=== PATIENT | male | born 1950 | race Caucasian/White ===

== ENCOUNTER 2017-04-06 16:05 | Emergency (ER) | payer MEDICARE, OTHER ==
[~2017-04-06] VITALS: Ht 175.3 cm; Wt 126.3 kg
[2017-04-06 16:10] VITALS: BP 153/69; PULSE 100; RESP 16; TEMP 97.5; O2SAT 96
[2017-04-06] MEDS ORDERED: TRAZ100T10 PO (17:32)
[2017-04-06] MEDS ORDERED: TRIA37.5 PO (17:32)
[2017-04-06] MEDS ORDERED: IBUP1TAB7 PO (17:32)
[2017-04-06] MEDS ORDERED: TAMS0.4C4 PO (17:32)
[2017-04-06] MEDS ORDERED: FLUT50SP EACH NARE (17:32)
[2017-04-06] MEDS ORDERED: XARE20TA PO (17:32)
[2017-04-06] MEDS ORDERED: ATOR40TA16 PO (17:32)
[2017-04-06] MEDS ORDERED: SODIUM CHLOR 0.9% 1000 ML INJ 1,000 ML IV ONE (17:45)
[2017-04-06 18:01] VITALS: BP 132/70; PULSE 94; RESP 20; O2SAT 96
[2017-04-06 18:11] LABS: BILIRUBIN, URINE NEG (NEG); BLOOD, URINE TRACE (NEG); GLUCOSE,URINE NEG (NEG); KETONE, URINE NEG (NEG); NITRITE,URINE POS (NEG); URINE LEUKOCYTE ESTERASE SMALL (NEG)
--- NOTE | 2017-04-06 18:19 | PD ---
HPI . Urinary incontinence Chief Complaint: Dizziness Time Seen by Provider: 17:37 Travel History International Travel<30 days: No Contact w/Intl Traveler<30days: No Traveled to known affect area: No History of Present Illness HPI Patient presents with chief complaint of urinary incontinence. Onset was a week ago. He also has some occasional dysuria. He reports a history of BPH but states that his symptoms are usually well-controlled with Flomax. He states that he has never been incontinent of urine until this past week. In addition, he complains of his torso symptoms started about a week ago. He has had watery eyes, rhinorrhea, nasal congestion, cough and fever. All of these symptoms are improving. PFSH Past Medical History Deep Vein Thrombosis: Yes Hypertension: Yes Past Surgical History Tonsillectomy: Yes Other Surgery: Yes (VERTIBRAE REPLACED, MENISCUS SURG) Social History Alcohol Use: No Tobacco Use: No Substance Use: No Allergies-Medications (Allergen,Severity, Reaction): Coded Allergies: Penicillins (Verified Allergy, Unknown, 04/06/17) Tetanus Vaccines and Toxoid (Verified Allergy, Unknown, 04/06/17) Reported Meds & Prescriptions Reported Meds & Active Scripts Active Reported Atorvastatin (Atorvastatin Calcium) 40 Mg Tab 40 Mg PO HS Tamsulosin (Tamsulosin HCl) 0.4 Mg Cap 0.8 Mg PO DAILY Triamterene-Hydrochlorothiazide 37.5-25 Mg Tab 1 Tab PO DAILY Trazodone (Trazodone HCl) 100 Mg Tablet 100 Mg PO HS Fluticasone Nasal [place] 50 Mcg/Act Naspr 50 Mcg EACH NARE BID 50 mcg/spray Ibuprofen 800 Mg Tab 800 Mg PO BID Xarelto (Rivaroxaban) 20 Mg Tab 20 Mg PO DAILY Review of Systems Except as stated in HPI: all other systems reviewed are Neg General / Constitutional: Positive: Fever Eyes: Positive: Tearing HENT: Positive: Lightheadedness, Rhinorrhea, Congestion Respiratory: Positive: Cough Genitourinary: Positive: Dysuria, Incontinence Physical Exam Narrative GENERAL: Patient is awake and alert and in no acute distress. SKIN: warm/dry. Normal color and turgor. HEAD: Normocephalic. Atraumatic. EYES: Pupils equal and round. No scleral icterus. No injection or drainage. ENT: No nasal bleeding or discharge. Mucous membranes pink and moist. NECK: Trachea midline. Full range of motion without pain.. CARDIOVASCULAR: Regular rate and rhythm. Heart sounds normal. RESPIRATORY: No accessory muscle use. Clear to auscultation. Breath sounds equal bilaterally. GASTROINTESTINAL: Abdomen soft. Nontender. Bowel sounds present. Nondistended. MUSCULOSKELETAL: No obvious deformities. NEUROLOGICAL: Awake and alert. No obvious cranial nerve deficits. Motor grossly within normal limits. Normal speech. PSYCHIATRIC: Appropriate mood and affect; insight and judgment normal. Data Data Last Documented VS Vital Signs Date Time Temp Pulse Resp B/P (MAP) Pulse Ox O2 Delivery O2 Flow Rate FiO2 04/06/17 18:01 94 20 132/70 (90) 96 04/06/17 16:10 97.5 Orders Orders Urinalysis - C+S If Indicated (04/06/17 17:44) Sodium Chlor 0.9% 1000 Ml Inj (Ns 1000 M (04/06/17 17:45) Influenzae A/B Antigen (04/06/17 18:22) Urine Culture (04/06/17 17:50) Ceftriaxone Inj (Rocephin Inj) (04/06/17 18:45) Labs Laboratory Tests Test 04/06/17 17:50 Urine Color YELLOW Urine Turbidity CLOUDY Urine pH 6.0 Urine Specific [place] 1.023 Urine Protein TRACE mg/dL Urine Glucose (UA) NEG mg/dL Urine Ketones NEG mg/dL Urine Occult Blood TRACE Urine Nitrite POS Urine Bilirubin NEG Urine Leukocyte Esterase SMALL Urine RBC 4-9 /hpf Urine WBC 9-14 /hpf Urine Squamous Epithelial Cells 0-5 /hpf Urine Bacteria MANY /hpf Microscopic Urinalysis Comment CULTURE INDICATED MDM Medical Decision Making Medical Screen Exam Complete: Yes Emergency Medical Condition: Yes Differential Diagnosis Final differential diagnosis of urinary symptoms includes but is not limited to UTI, kidney stone, pyelonephritis, bacterial vaginosis, yeast infection, urinary retention Narrative Course This patient presents complaining with urinary incontinence and dysuria for the last week. He most likely has urinary tract infection. UA is pending. His urine looks very concentrated. He'll be given a liter of fluid pending his urinalysis. UA>>small LE, 4-9 RBCs, 9-14 WBCs, many bact I'll give him a dose of Rocephin here and discharge him home with a prescription for Keflex. Diagnosis Primary Impression: Urinary tract infection Qualified Codes: N30.00 - Acute cystitis without hematuria Patient Instructions: General Instructions, Urinary Tract Infection in Men (DC) Med/Other Pt SpecificInfo: Prescription(s) given Scripts Phenazopyridine (Pyridium) 100 Mg Tab 200 MG PO Q8H Y for DYSURIA, #10 TAB 0 Refills Prov: Zenobia Cruz MD 04/06/17 Cephalexin (Keflex) 500 Mg Cap 500 MG PO Q8H for Infection for 7 Days, #21 CAP 0 Refills Prov: Zenobia Cruz MD 04/06/17 Disposition: 01 DISCHARGE HOME Condition: Stable Zenobia Cruz MD Apr 06, 2017 18:19
[2017-04-06 18:25] LABS: URINE COLOR YELLOW (YELLW/STRAW)
[2017-04-06 18:26] LABS: BACTERIA, URINE MANY /hpf; SQUAMOUS EPITHELIAL CELL URINE 0-5 /hpf (0-5)
[2017-04-06] MEDS ORDERED: CEPH-460 PO (18:40)
[2017-04-06] MEDS ORDERED: PHEN0.4T PO (18:40)
[2017-04-06] MEDS ORDERED: cefTRIAXone INJ 1,000 MG in SODIUM CHLORIDE 0.9% INJ 100 ML IV ONE (18:45)
[2017-04-06 19:22] VITALS: BP 138/67; PULSE 85; RESP 16; O2SAT 99
== END 2017-04-06 20:05 | disposition home or self-care (01) ==
LOC: PHED 16:05
DX: N30.00 Acute cystitis without hematuria (principal); B96.1 Klebsiella pneumoniae [K. pneumoniae] as the cause of diseases classified elsewhere; N40.0 Benign prostatic hyperplasia without lower urinary tract symptoms; I10 Essential (primary) hypertension; Z86.718 Personal history of other venous thrombosis and embolism
CPT/HCPCS: 81001; 87077; 87086; 87186; 87804; 96361; 96365; 99284; J0696; J7030

== ENCOUNTER 2017-05-17 11:12 | Emergency (ER) | payer MEDICARE, OTHER ==
[~2017-05-17] VITALS: Ht 170.2 cm; Wt 128.0 kg
[~2017-05-17 11:12] MED LIST: ATOR40TA16 PO; CEPH-460 PO; FLUT50SP EACH NARE; IBUP1TAB7 PO; PHEN0.4T PO; TAMS0.4C4 PO; TRAZ100T10 PO; TRIA37.5 PO; XARE20TA PO
[2017-05-17 11:20] VITALS: BP 132/65; PULSE 93; RESP 18; TEMP 98.4; O2SAT 96
[2017-05-17] MEDS ORDERED: TAMS0.4C4 PO (11:53)
[2017-05-17] MEDS ORDERED: RANI150C PO (11:53)
[2017-05-17] MEDS ORDERED: FORT10GE TOPICAL (11:53)
[2017-05-17 12:08] LABS: BILIRUBIN, URINE NEG (NEG); BLOOD, URINE NEG (NEG); GLUCOSE,URINE NEG (NEG); KETONE, URINE NEG (NEG); NITRITE,URINE NEG (NEG); PH, URINE 5.5 (5.0-8.5); URINE COLOR YELLOW (YELLW/STRAW); URINE LEUKOCYTE ESTERASE MOD (NEG)
[2017-05-17 12:14] LABS: BACTERIA, URINE MOD /hpf; RBC, URINE 0-3 /hpf (0-3)
[2017-05-17] MEDS ORDERED: CEFD300C PO (12:24)
--- NOTE | 2017-05-17 12:24 | PD ---
HPI Chief Complaint: Complaint Time Seen by Provider: 11:31 Travel History International Travel<30 days: No Contact w/Intl Traveler<30days: No Traveled to known affect area: No History of Present Illness HPI 66-year-old male complains of dysuria and frequency. Duration has been approximately 3 or 4 days. No fever. Onset gradual. Modifying factor. Patient was seen here about 2 weeks prior and diagnosed with a UTI. He reports compliance with Keflex following the resolution of symptoms. PFSH Past Medical History Hx Anticoagulant Therapy: Yes Arthritis: Yes Atrial Fibrillation: Yes Heart Rhythm Problems: Yes High Cholesterol: Yes Deep Vein Thrombosis: Yes (left leg x 2) GERD: Yes Hypertension: Yes Medical other: Yes (hx of edema in legs, restless leg symdrome) Musculoskeletal: Yes (bilat knee) Respiratory: Yes (Asthma) Tetanus Vaccination: > 5 Years Influenza Vaccination: Yes ?: Not Past Surgical History Joint Replacement: Yes (left knee) Tonsillectomy: Yes Other Surgery: Yes (VERTIBRAE REPLACED, MENISCUS SURG) Social History Alcohol Use: No Tobacco Use: No Substance Use: No Allergies-Medications (Allergen,Severity, Reaction): Coded Allergies: Penicillins (Verified Allergy, Unknown, 05/17/17) Tetanus Vaccines and Toxoid (Verified Allergy, Unknown, 05/17/17) Reported Meds & Prescriptions Reported Meds & Active Scripts Active Reported Ranitidine (Ranitidine HCl) 150 Mg Cap 150 Mg PO DAILY Fortesta Topical (Testosterone) Unknown Strength Gel Unknown Dose TOPICAL DAILY 10 mg/actuation Tamsulosin (Tamsulosin HCl) 0.4 Mg Cap 0.4 Mg PO HS Atorvastatin (Atorvastatin Calcium) 40 Mg Tab 40 Mg PO HS Tamsulosin (Tamsulosin HCl) 0.4 Mg Cap 0.8 Mg PO DAILY Triamterene-Hydrochlorothiazide 37.5-25 Mg Tab 1 Tab PO DAILY Trazodone (Trazodone HCl) 100 Mg Tablet 100 Mg PO HS Fluticasone Nasal [place] 50 Mcg/Act Naspr 50 Mcg EACH NARE BID 50 mcg/spray Ibuprofen 800 Mg Tab 800 Mg PO TID PRN Xarelto (Rivaroxaban) 20 Mg Tab 20 Mg PO DAILY Review of Systems Except as stated in HPI: all other systems reviewed are Neg General / Constitutional: No: Fever HENT: No: Sore Throat Physical Exam Narrative GENERAL: 66-year-old male well-nourished well-developed no acute distress Vital Signs Date Time Temp Pulse Resp B/P (MAP) Pulse Ox O2 Delivery O2 Flow Rate FiO2 05/17/17 11:41 16 05/17/17 11:20 98.4 93 18 132/65 (87) 96 SKIN: Warm and dry. HEAD: Atraumatic. Normocephalic. EYES: Pupils equal and round. No scleral icterus. No injection or drainage. ENT: No nasal bleeding or discharge. Mucous membranes pink and moist. NECK: Trachea midline. No JVD. CARDIOVASCULAR: Regular rate and rhythm. RESPIRATORY: No accessory muscle use. Clear to auscultation. Breath sounds equal bilaterally. GASTROINTESTINAL: Abdomen soft, non-tender, nondistended. Hepatic and splenic margins not palpable. MUSCULOSKELETAL: Extremities without clubbing, cyanosis, or edema. No obvious deformities. Bilateral lower extremity dressings following prior to the surgery. NEUROLOGICAL: Awake and alert. No obvious cranial nerve deficits. Motor grossly within normal limits. Five out of 5 muscle strength in the arms and legs. Normal speech. PSYCHIATRIC: Appropriate mood and affect; insight and judgment normal. Data Data Last Documented VS Vital Signs Date Time Temp Pulse Resp B/P (MAP) Pulse Ox O2 Delivery O2 Flow Rate FiO2 05/17/17 11:41 16 05/17/17 11:20 98.4 93 132/65 (87) 96 Orders Orders Urinalysis - C+S If Indicated (05/17/17 11:37) Urine Culture (05/17/17 12:00) Ceftriaxone Inj (Rocephin Inj) (05/17/17 12:30) Labs Laboratory Tests Test 05/17/17 12:00 Urine Color YELLOW Urine Turbidity CLEAR Urine pH 5.5 Urine Specific [place] 1.020 Urine Protein NEG mg/dL Urine Glucose (UA) NEG mg/dL Urine Ketones NEG mg/dL Urine Occult Blood NEG Urine Nitrite NEG Urine Bilirubin NEG Urine Urobilinogen 0.2 MG/DL Urine Leukocyte Esterase MOD Urine RBC 0-3 /hpf Urine WBC 20-24 /hpf Urine Bacteria MOD /hpf Microscopic Urinalysis Comment CULTURE INDICATED MDM Medical Decision Making Medical Screen Exam Complete: Yes Emergency Medical Condition: Yes Medical Record Reviewed: Yes Differential Diagnosis UTI, MDR UTI, sepsis Narrative Course Prior urinalysis reveals resistance to multiple agents including Bactrim Cipro and Macrobid. There is sensitivity to most cephalosporins. Today's urinalysis reveals a urinary tract infection. We'll give a dose of Rocephin here and Cefdinir for two weeks. Diagnosis Primary Impression: UTI (urinary tract infection) Qualified Codes: N39.0 - Urinary tract infection, site not specified Referrals: Primary Care Physician 1 week Med/Other Pt SpecificInfo: Prescription(s) given Scripts Cefdinir (Cefdinir) 300 Mg Cap 300 MG PO BID for Infection for 14 Days, #28 CAP 0 Refills Prov: Jean Palacios MD 05/17/17 Condition: Stable Jean Palacios MD May 17, 2017 12:24
[2017-05-17] MEDS ORDERED: cefTRIAXone INJ 1,000 MG in SODIUM CHLORIDE 0.9% INJ 100 ML IV ONE (12:30)
[2017-05-17 13:23] VITALS: BP 130/64; PULSE 90; RESP 18; O2SAT 96
== END 2017-05-17 13:25 | disposition home or self-care (01) ==
LOC: PHED 11:12
DX: N39.0 Urinary tract infection, site not specified (principal); B96.1 Klebsiella pneumoniae [K. pneumoniae] as the cause of diseases classified elsewhere; I48.91 Unspecified atrial fibrillation; E78.00 Pure hypercholesterolemia, unspecified; Z86.718 Personal history of other venous thrombosis and embolism; K21.9 Gastro-esophageal reflux disease without esophagitis; I10 Essential (primary) hypertension; J45.909 Unspecified asthma, uncomplicated; Z79.01 Long term (current) use of anticoagulants
CPT/HCPCS: 81001; 87077; 87086; 87186; 96372; 99283; J0696

== ENCOUNTER 2017-06-28 17:17 | Emergency (ER) | payer MEDICARE, OTHER ==
[~2017-06-28] VITALS: Ht 175.3 cm; Wt 133.5 kg
[~2017-06-28 17:17] MED LIST changes: +CEFD300C PO; -CEPH-460 PO; +FORT10GE TOPICAL; -PHEN0.4T PO; +RANI150C PO
[2017-06-28 17:18] VITALS: BP 142/75; PULSE 82; RESP 16; TEMP 99.1; O2SAT 96
--- NOTE | 2017-06-28 17:35 | PD ---
HPI Chief Complaint: Fall Time Seen by Provider: 17:35 Travel History International Travel<30 days: No Contact w/Intl Traveler<30days: No Traveled to known affect area: No History of Present Illness HPI 66-year-old male came to the emergency room with history of a fall when he was getting up from the couch and lost his balance. He ended up leaning towards the right side and hit his right upper part of the body above the waist on the wall to the side. This prevented his direct fall to the floor but somehow he slid and sat on the floor. Patient thinks during this process he twisted his right knee. Since then his right knee has been hurting. He had some trouble getting up but eventually was able to get up from the floor. Patient says that he has history of bilateral leg edema from venous insufficiency and the edema lately has been getting worse. He is on diuretic for many years for this. No known heart disease. He moved down from [place]. He had doctors in [place] but currently has not seen a doctor since December of last year. He does have an appointment with primary care in 3 weeks. Patient also noticed after 2 hours of the fall some blood in his urine. This really concerned him and was the reason for him to come to the emergency room. No history of dysuria. Patient is on Xarelto for history of DVT. Vital signs are stable otherwise. No history of fever or chills. Patient does not have any previous history of hematuria or kidney disease. PFSH Past Medical History Narrative Medical List of his past medical, surgical, social and family history reviewed from the nursing note. Hx Anticoagulant Therapy: Yes (FOR DVT-XARLETO) Arthritis: Yes Atrial Fibrillation: Yes Heart Rhythm Problems: Yes High Cholesterol: Yes Diabetes: No Diminished Hearing: No Deep Vein Thrombosis: Yes (left leg x 2) GERD: Yes Hypertension: Yes Musculoskeletal: Yes (bilat knee) Respiratory: Yes (Asthma) Tetanus Vaccination: Unknown Past Surgical History Joint Replacement: Yes (left knee) Tonsillectomy: Yes Other Surgery: Yes (VERTIBRAE REPLACED, MENISCUS SURG) Social History Alcohol Use: No Tobacco Use: No Substance Use: No Allergies-Medications (Allergen,Severity, Reaction): Coded Allergies: Penicillins (Verified Allergy, Unknown, 06/28/17) Tetanus Vaccines and Toxoid (Verified Allergy, Unknown, 06/28/17) Comments List of his allergies reviewed from the nursing note. Reported Meds & Prescriptions Reported Meds & Active Scripts Active Hydrocodone-Acetaminophen 5-325 mg Tab 1 Tab PO Q6H PRN Reported Tylenol (Acetaminophen) 325 Mg Tab 325 Mg PO DAILY Multiple Vitamin 1 Tab 1 Tab PO DAILY Calcium Citrate-Vitamin D 315-200 Mg-Unit Tab 1 Tab PO BID Martina Allergy (Fexofenadine HCl) 180 Mg Tab 180 Mg PO DAILY Colace (Docusate Sodium) 100 Mg Capsule 100 Mg PO QOD Ranitidine (Ranitidine HCl) 150 Mg Cap 150 Mg PO DAILY Fortesta Topical (Testosterone) Unknown Strength Gel Unknown Dose TOPICAL DAILY 10 mg/actuation Atorvastatin (Atorvastatin Calcium) 40 Mg Tab 40 Mg PO HS Tamsulosin (Tamsulosin HCl) 0.4 Mg Cap 0.8 Mg PO DAILY Triamterene-Hydrochlorothiazide 37.5-25 Mg Tab 1 Tab PO DAILY Trazodone (Trazodone HCl) 100 Mg Tablet 100 Mg PO HS Fluticasone Nasal [place] 50 Mcg/Act Naspr 50 Mcg EACH NARE BID 50 mcg/spray Ibuprofen 800 Mg Tab 800 Mg PO TID PRN Xarelto (Rivaroxaban) 20 Mg Tab 20 Mg PO DAILY Narrative Medication List of his home medications reviewed from the nursing Review of Systems Except as stated in HPI: all other systems reviewed are Neg Genitourinary: Positive: Hematuria Musculoskeletal: Positive: Edema Physical Exam Narrative GENERAL: Awake, alert, morbidly obese, moderate distress SKIN: Focused skin assessment warm/dry. HEAD: Atraumatic. Normocephalic. EYES: Pupils equal and round. No scleral icterus. No injection or drainage. ENT: No nasal bleeding or discharge. Mucous membranes pink and moist. NECK: Trachea midline. No JVD. CARDIOVASCULAR: Regular rate and rhythm. No murmur appreciated. RESPIRATORY: No accessory muscle use. Clear to auscultation. Breath sounds equal bilaterally. GASTROINTESTINAL: Abdomen soft, non-tender, nondistended. Hepatic and splenic margins not palpable. MUSCULOSKELETAL: No obvious deformities. No clubbing. No cyanosis. Bilateral leg edema 3+ NEUROLOGICAL: Awake and alert. No obvious cranial nerve deficits. Motor grossly within normal limits. Normal speech. PSYCHIATRIC: Appropriate mood and affect; insight and judgment normal. Data Data Last Documented VS Orders Orders Urinalysis - C+S If Indicated (06/28/17 17:19) Complete Blood Count With Diff (06/28/17 17:53) Comprehensive Metabolic Panel (06/28/17 17:53) Ct Abd/Pel W/O Iv Contrast (06/28/17 17:53) Ecg Monitoring (06/28/17 17:53) Iv Access Insert/Monitor (06/28/17 17:53) Sodium Chloride 0.9% Flush (Ns Flush) (06/28/17 18:00) Troponin I (06/28/17 17:53) B-Type Natriuretic Peptide (06/28/17 17:53) Chest, Pa & Lat (06/28/17 ) Knee, Complete (4vws) (06/28/17 ) Electrocardiogram (06/28/17 ) Ed Discharge Order (06/28/17 20:30) Labs Laboratory Tests Test 06/28/17 17:30 06/28/17 18:00 Urine Color YELLOW Urine Turbidity CLEAR Urine pH 5.5 Urine Specific [place] 1.015 Urine Protein NEG mg/dL Urine Glucose (UA) NEG mg/dL Urine Ketones NEG mg/dL Urine Occult Blood LARGE Urine Nitrite NEG Urine Bilirubin NEG Urine Urobilinogen 0.2 MG/DL Urine Leukocyte Esterase TRACE Urine RBC 50-99 /hpf Urine WBC 3-5 /hpf Urine Squamous Epithelial Cells 0-5 /hpf Urine Bacteria NONE /hpf Microscopic Urinalysis Comment CULT NOT INDICATED White Blood Count 10.4 TH/MM3 Red Blood Count 4.81 MIL/MM3 Hemoglobin 14.2 GM/DL Hematocrit 41.0 % Mean Corpuscular Volume 85.3 FL Mean Corpuscular Hemoglobin 29.6 PG Mean Corpuscular Hemoglobin Concent 34.7 % Red Cell Distribution Width 13.6 % Platelet Count 185 TH/MM3 Mean Platelet Volume 8.7 FL Neutrophils (%) (Auto) 72.0 % Lymphocytes (%) (Auto) 17.9 % Monocytes (%) (Auto) 6.8 % Eosinophils (%) (Auto) 3.0 % Basophils (%) (Auto) 0.3 % Neutrophils # (Auto) 7.5 TH/MM3 Lymphocytes # (Auto) 1.9 TH/MM3 Monocytes # (Auto) 0.7 TH/MM3 Eosinophils # (Auto) 0.3 TH/MM3 Basophils # (Auto) 0.0 TH/MM3 CBC Comment DIFF FINAL Differential Comment Blood Urea Nitrogen 29 MG/DL Creatinine 1.30 MG/DL Random Glucose 105 MG/DL Total Protein 7.3 GM/DL Albumin 3.6 GM/DL Calcium Level 9.1 MG/DL Alkaline Phosphatase 127 U/L Aspartate Amino Transf (AST/SGOT) 20 U/L Alanine Aminotransferase (ALT/SGPT) 28 U/L Total Bilirubin 0.7 MG/DL Sodium Level 138 MEQ/L Potassium Level 3.9 MEQ/L Chloride Level 102 MEQ/L Carbon Dioxide Level 28.7 MEQ/L Anion Gap 7 MEQ/L Estimat Glomerular Filtration Rate 55 ML/MIN Troponin I LESS THAN 0.02 NG/ML B-Type Natriuretic Peptide 42 PG/ML MDM Medical Decision Making Medical Screen Exam Complete: Yes Emergency Medical Condition: Yes Medical Record Reviewed: Yes Interpretation(s) Twelve-lead EKG was reviewed by me. Normal sinus rhythm, normal axis, nonspecific ST-T wave changes. Heart rate of 74 bpm Differential Diagnosis CHF, renal injury, renal tumor, UTI, knee joint effusion Narrative Course 7:08 PM blood test results are back and within normal limits. UA suggestive of elevated RBCs in the urine but no signs of infection. Awaiting for the CAT scan of the abdomen and pelvis to be resulted. 7:26 PM x-ray of the chest and the knee are essentially negative for any acute changes. Awaiting for the CAT scan to be resulted. Procedures EKG Prior to Arrival: No Diagnosis Primary Impression: Hematuria Qualified Codes: R31.0 - Gross hematuria Additional Impression: Edema of both lower legs due to peripheral venous insufficiency Referrals: Casey Judge MD 2 days Additional Instructions: Follow-up with the urologist was name and number been provided to you on this discharge instruction. Hold off on your Xarelto for next 1 day. Follow-up with your primary care. Return to the ER if condition worsens or any other new concerns. Keep the legs elevated and use compression stockings to keep the swelling down. Med/Other Pt SpecificInfo: Prescription(s) given, No Change to Meds Scripts Hydrocodone-Acetaminophen (Hydrocodone-Acetaminophen) 5-325 mg Tab 1 TAB PO Q6H Y for PAIN, #10 TAB 0 Refills Prov: Emanuel Fournier MD 06/28/17 Disposition: 01 DISCHARGE HOME Condition: Stable Emanuel Fournier MD June 28, 2017 17:35
[2017-06-28] MEDS ORDERED: MULTTAB67 PO (17:53)
[2017-06-28] MEDS ORDERED: FEXO15TA PO (17:53)
[2017-06-28] MEDS ORDERED: COLA100C5 PO (17:53)
[2017-06-28] MEDS ORDERED: CALC1TAB16 PO (17:53)
[2017-06-28] MEDS ORDERED: TYLE325T PO (17:54)
[2017-06-28] MEDS ORDERED: SODIUM CHLORIDE 0.9% FLUSH 10 ML FLUSH IVF PRN (18:00)
[2017-06-28 18:08] LABS: BILIRUBIN, URINE NEG (NEG); BLOOD, URINE LARGE (NEG); GLUCOSE,URINE NEG (NEG); KETONE, URINE NEG (NEG); NITRITE,URINE NEG (NEG); PH, URINE 5.5 (5.0-8.5); URINE COLOR YELLOW (YELLW/STRAW); URINE LEUKOCYTE ESTERASE TRACE (NEG)
[2017-06-28 18:15] LABS: SQUAMOUS EPITHELIAL CELL URINE 0-5 /hpf (0-5)
[2017-06-28 18:17] LABS: CHLORIDE 102 MEQ/L (98-107); SODIUM (NA) 138 MEQ/L (136-145)
[2017-06-28 18:18] LABS: AUTOMATED NEUTROPHIL # 7.5 TH/MM3 (1.8-7.7); BASOPHIL % 0.3 % (0.0-2.0); EOSINOPHIL # 0.3 TH/MM3 (0-0.4); HEMOGLOBIN 14.2 GM/DL (13.0-17.0); LYMPH % 17.9 % (9.0-44.0); LYMPHOCYTE # 1.9 TH/MM3 (1.0-4.8); MEAN CELL VOLUME 85.3 FL (80.0-100.0); MEAN CORPUSCULAR HEMOGLOBIN 29.6 PG (27.0-34.0); MEAN CORPUSCULAR HGB CONC 34.7 % (32.0-36.0); MEAN PLATELET VOLUME 8.7 FL (7.0-11.0); MONO % 6.8 % (0.0-8.0); MONOCYTE # 0.7 TH/MM3 (0-0.9); PLATELET COUNT 185 TH/MM3 (150-450); RED BLOOD COUNT 4.81 MIL/MM3 (4.50-5.90); RED CELL DISTRIBUTION WIDTH 13.6 % (11.6-17.2); WHITE BLOOD COUNT 10.4 TH/MM3 (4.0-11.0)
[2017-06-28 18:21] LABS: CALCIUM 9.1 MG/DL (8.5-10.1)
[2017-06-28 18:22] LABS: ALBUMIN 3.6 GM/DL (3.4-5.0); BICARBONATE 28.7 MEQ/L (21.0-32.0); BLOOD UREA NITROGEN 29 MG/DL (7-18); GLUCOSE,RANDOM 105 MG/DL (74-106)
[2017-06-28 18:25] LABS: ALT (GPT) 28 U/L (12-78); AST (GOT) 20 U/L (15-37); GLOMERULAR FILTRATION RATE 55 ML/MIN (>89)
[2017-06-28 18:26] LABS: TOTAL BILIRUBIN ADULT 0.7 MG/DL (0.2-1.0); TOTAL PROTEIN 7.3 GM/DL (6.4-8.2)
[2017-06-28 18:28] LABS: ALKALINE PHOSPHATASE 127 U/L (45-117)
[2017-06-28 18:30] LABS: TROPONIN I LESS THAN 0.02 NG/ML (0.02-0.05)
--- NOTE | 2017-06-28 19:07 | RADRPT ---
EXAM DATE/TIME: 06/28/2017 18:08 [facility] COMPARISON: No previous studies available for comparison. INDICATIONS : Cough. MEDICAL HISTORY : None. SURGICAL HISTORY : None. ENCOUNTER: Initial ACUITY: 1 day PAIN SCORE: 0/10 LOCATION: Bilateral chest FINDINGS: PA and lateral views of the chest demonstrate the lungs to be symmetrically aerated without evidence of mass, infiltrate or effusion. The cardiomediastinal contours are unremarkable. Osseous structure s are intact. CONCLUSION: No acute disease. Juan Alberto Cote MD on June 28, 2017 at 19:05 Board Certified Radiologist. This report was verified electronically.
--- NOTE | 2017-06-28 19:10 | RADRPT ---
EXAM DATE/TIME: 06/28/2017 18:08 [facility] COMPARISON: No previous studies available for comparison. INDICATIONS : Fall this afternoon. Pain in posterior knee. MEDICAL HISTORY : None. SURGICAL HISTORY : None. ENCOUNTER: Initial ACUITY: 1 day PAIN SCORE: 10/10 LOCATION: Right Knee FINDINGS: The knee joint is normally aligned. No effusion is seen. An acute fractures not clearly seen. There i s suspected hypertrophic change seen at the medial, lateral and patellofemoral regions. There does ap pear to be a lucency between the medial tibial plateau and the medial hypertrophic change. This lucen cy projects medial to the medial margin of the proximal tibia suggesting its all related to the hyper trophic change. CONCLUSION: Hypertrophic change seen throughout the knee joint. Juan Alberto Cote MD on June 28, 2017 at 19:06 Board Certified Radiologist. This report was verified electronically.
--- NOTE | 2017-06-28 20:20 | RADRPT ---
EXAM DATE/TIME: 06/28/2017 18:38 [facility] COMPARISON: No previous studies available for comparison. INDICATIONS : Fall today. Hematuria. ORAL CONTRAST: No oral contrast ingested. RADIATION DOSE: 24.98 CTDIvol (mGy) ; Patient body habitus MEDICAL HISTORY : Deep venous thrombosis. Hypertension. Gastroesophageal reflux disease. SURGICAL HISTORY : None. ENCOUNTER: Initial ACUITY: 1 day PAIN SCALE: 4/10 LOCATION: Abdomen. TECHNIQUE: Volumetric scanning of the abdomen and pelvis was performed. Using automated exposure control and ad justment of the mA and/or kV according to patient size, radiation dose was kept as low as reasonably achievable to obtain optimal diagnostic quality images. DICOM format image data is available electro nically for review and comparison. FINDINGS: LOWER LUNGS: The visualized lower lungs are clear. LIVER: Homogeneous density without lesion. There is no dilation of the biliary tree. No calcified gallston es. SPLEEN: Normal size without lesion. PANCREAS: Within normal limits. KIDNEYS: There are multiple renal masses seen bilaterally measuring up to 4.6 cm on the right and 7.2 cm on th e left. These are nonspecific on this noncontrast CT studies. They resemble cysts. No renal stones or hydronephrosis is seen. ADRENAL GLANDS: Within normal limits. VASCULAR: There is no aortic aneurysm. There is an IVC filter present. Arterial calcifications are present. BOWEL/MESENTERY: The stomach, small bowel, and colon demonstrate no acute abnormality. There is no free intraperitone al air or fluid. ABDOMINAL WALL: Within normal limits. RETROPERITONEUM: There is no lymphadenopathy. BLADDER: No wall thickening or mass. REPRODUCTIVE: Within normal limits. INGUINAL: There is no lymphadenopathy or hernia. MUSCULOSKELETAL: There is degenerative change throughout the lumbar spine. There is a dextrocurvature of the lumbar sp ine. There is focal sclerosis of the right ilium. This is nonspecific. It could represent a bone claudia nd. CONCLUSION: 1. No acute abnormality seen. 2. Renal masses likely related to cysts although these are nonspecific on this noncontrast CT examina tion. 3. IVC filter. Juan Alberto Cote MD on June 28, 2017 at 20:14 Board Certified Radiologist. This report was verified electronically.
[2017-06-28] MEDS ORDERED: HYDR-3516 PO (20:39)
[2017-06-28 20:44] VITALS: BP 140/78
--- NOTE | 2017-06-29 12:18 | EKG ---
Date Performed: 06/28/2017 Time Performed: 18:34:37 PTAGE: 66 years EKG: Sinus rhythm NORMAL ECG NO PREVIOUS TRACING DOCTOR: Jorge Lu Interpretating Date/Time 06/29/2017 12:15:58
== END 2017-06-28 20:46 | disposition home or self-care (01) ==
LOC: PHED 17:17
DX: R31.0 Gross hematuria (principal); I87.2 Venous insufficiency (chronic) (peripheral); M25.561 Pain in right knee; X50.1XXA Overexertion from prolonged static or awkward postures, initial encounter; K21.9 Gastro-esophageal reflux disease without esophagitis; I10 Essential (primary) hypertension; I48.91 Unspecified atrial fibrillation; J45.909 Unspecified asthma, uncomplicated; Z86.718 Personal history of other venous thrombosis and embolism
CPT/HCPCS: 71046; 73564; 74176; 80053; 81001; 83880; 84484; 85025; 93005; 99285